=== PATIENT | male | born 1945 | race Caucasian/White ===

== ENCOUNTER 2024-05-13 00:08 | Day surgery (SDC) | payer MEDICARE, SELFPAY ==
[2024-05-12 13:14] VITALS: BMI 26.4
--- OUTSIDE RECORDS SUMMARY | 2024-05-13 00:11 | XMS_ITS | Clinical Summary ---
Author Organization [facility] iCurrent Address [address] [place] [address] Care Team Providers Care Licensed Occupational Therapy Assistant Name Role Phone Huber Carty MD Primary Care Provider [phone] Source Comments Recommend iCurrent,non-owned Affiliates and Associated Physician Practices is amultiple site organization consisting of ambulatory clinics and hospital sitesin [place], [place], [place] and [place]. This disclosure is being madepursuant to the Care Everywhere program and may not contain all information available regarding this patient. Last updated 17.[employer] Allergies No known active allergies Medications * Be aware that medications may not be up to date on this document. Alwaysverify current medications with the patient. Medication Sig Dispensed Refills Start Date End Date Status aspirin (ASPIRIN) 81 MG chew tablet 81 mg 01/21/2012 Active raNITIdine (ZANTAC) 150 MG tablet 150 mg 01/21/2012 Active Active Problems Problem Noted Date Diagnosed Date Paroxysmal atrial fibrillation 10/16/2016 Presence of cardiac pacemaker 10/16/2016 Overview (10/23/2016): Overview: Medtronic Dual Pacemaker Dx; CHB, Afib. DOI 09/02/2014, chronic leads 11/05/06. Carelink remote home monitoring Q3 months, Office pacer checks Q1 year. Pt is Pacer Dependent. Immunizations Name Administration Dates Next Due INFLUENZA VACCINE, HIGH-DOSE , QUADR. (FLUZONE HIGH-DOSE QUADRIVALENT; 65Y+), 0.7 ML (HD-IIV4) 10/12/2019,10/28/2018,10/16/2017, 017 Social History Tobacco Use Types Packs/Day Years Used Date Smoking Tobacco: Never Smokeless Tobacco: Never Alcohol Use Standard Drinks/Week Comments Yes 0 (1 standard drink = 0.6 oz pur e alcohol) Sex and Gender Information Value Date Recorded Sex Assigned at Not on file Gender Identity Not on file Sexual Orientation Not on file Last Filed Vital Signs Vital Sign Reading Time Taken Comments Blood Pressure 155/84 09/28/2020 8:52 AM CDT Pulse 69 09/28/2020 8:52 AM CDT Temperature 36.8 C (98.2 F) 09/28/2020 8:52 AM CDT Respiratory Rate 16 09/28/2020 8:52 AM CDT Oxygen Saturation 100% 09/28/2020 8:52 AM CDT Inhaled Oxygen Concentration - - Weight 83.9 kg (185 lb) 09/28/2020 8:52 AM CDT Height 182.9 cm (6') 09/28/2020 8:52 AM CDT Body Mass Index 25.09 09/28/2020 8:52 AM CDT Plan of Treatment Health Maintenance Due Date Last Done Comments DTAP/TDAP/TD VACCINES (1 - Tdap) 02/12/1964 PNEUMOCOCCAL VACCINE 50+ (1 of 1 - PCV) 1995 ZOSTER VACCINE (1 of 2) 1995 Respiratory Syncytial Virus (RSV) Vaccine Pt: or over 60 yrs (1 - 1-dose 75+ series) 02/12/2020 COVID-19 VACCINE (3 - season) 2023 03/29/2020, 03/07/2020 INFLUENZA VACCINE (#1) 2023 0, 10/28/2018, 10/16/2017, Additional history exists DEPRESSION SCREENING 2024 MEDICARE AWV CALENDAR YEAR 2024 HEPATITIS B VACCINE Aged Out No longe r eligible based on patient's age to complete this topic HIB VACCINE Aged Out No longer eligi ble based on patient's age to complete this topic HPV VACCINE Aged Out No longer eligi ble based on patient's age to complete this topic MENINGOCOCCAL (Group B) VACCINE SHARED DECISION-MAKING Aged Out No longer eligible based on patient's age to complete this topic MENINGOCOCCAL GROUPS A/C/Y/W VACCINE Aged Out No longer eligible based on patient's age to complete this topic Care Teams Licensed Occupational Therapy Assistant Relationship Specialty Start Date End Date Huber Carty MD PCP - General Family Medicine 11/17/15
--- OUTSIDE RECORDS SUMMARY | 2024-05-13 00:11 | XMS_ITS ---
Author Organization [facility] Address [address] [facility] [place] [address] Care Team Providers Care Cma Or Lpn Name Role Phone Rosa May Beatriz Primary Care Provider [phone] Active Problems Patient Care Coordination No te Formatting of this note migh t be different from the original. 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 Polypectomy x 14 - 07/2022 Vitamin B12 deficiency (non anemic) 01/19/2015 Complete heart block 01/18/2015 Overview (01/18/2015): 2008 following ablation. Pacemaker 10/25/2014 Overview (10/25/2014): 2006, 2014 Current Treatment and Therapy Plans No current plan information found. Past Treatment and Therapy Plans No past plan information found. Lifetime Dose Tracking * Chemical Lifetime Dose Automatic Entry Manual Entr y Effective Dose 12.61 mSv 12.61 mSv 0 mSv Total DLP 958.26 DLP 958.26 DLP 0 DLP CTDIvol Max 17.84 mGy 17.84 mGy 0 mGy CTDIvol Min 17.84 mGy 17.84 mGy 0 mGy
--- OUTSIDE RECORDS SUMMARY | 2024-05-13 00:11 | XMS_ITS | Clinical Summary ---
Author Organization [facility] [address] [facility] [address] Address [address] [place] [address] Care Team Providers Care Supervisor Abattoir Name Role Phone Beatriz Lee DO Primary Care Provider [phone] Allergies Active Allergy Reactions Criticality Noted Date Comments Sulfamethoxazole-Trimethoprim Diarrhea Low 2017 Medications atorvastatin (LIPITOR) 40 mg tablet Take 0.5 tablets (20 mg total) by mouth daily 05/30/2020 Active cyanocobalamin (Vitamin B-12) 50 mcg tabletIndicatio ns:Prevention of Vitamin B12 Deficiency Take 1 tablet (50 mcg total) by mouth daily Active cholecalciferol (VITAMIN D-3) 1,000 unit Take 1 tablet/capsu le (1,000 Units total) by mouth daily Active Active Problems Problem Noted Date Diagnosed Date Complete heart block 10/15/2018 Paroxysmal atrial fibrillation 10/16/2016 Presence of cardiac pacemaker 10/16/2016 Overview (10/16/2016): Medtronic Dual Pacemaker Dx; CHB, Afib. DOI 09/02/2014, chronic leads 11/05/06. Carelink remote home monitoring Q3 months, Office pacer checks Q1 year. Pt is Pacer Dependent. Encounters Date Type Department Care Team Description 04/29/2024 Telephone [facility] Cardiology [address] [place] [address] Yan Clemens MD remote device transmission 04/28/2024 11:00 AM CDT Ancillary Procedure [facility] Cardiology [address] [place] [phone] Complete heart block (HCC); Presence of cardiac pacemaker 04/15/2024 3:00 PM PARATRANSIT OPERATOR Office Visit [facility] Cardiology at [address] [place] [phone] Yan Clemens MD Paroxysmal atrial fibrillation (HCC) (Primary Dx); Presence of cardiac pacemaker; Complete heart block (HCC) 03/31/2024 10:00 AM PARATRANSIT OPERATOR Ancillary Procedure [facility] Cardiology [address] [place] [address] [place] [phone] Complete heart block (HCC); Presence of cardiac pacemaker 03/02/2024 11:00 AM PARATRANSIT OPERATOR Ancillary Procedure [facility] Cardiology [address] [place] [address] [place] [phone] Complete heart block (HCC); Presence of cardiac pacemaker 02/13/2024 Orders Only [facility] Cardiology [address] [place] [address] [place] [phone] Yan Clemens MD Complete heart block (HCC) (Primary Dx); Presence of cardiac pacemaker from Last 3 Months Surgical History Surgery Date Site/Laterality Comments ABDOMINAL SURGERY September 2022 Medical History Medical History Date Comments Hypertension Hypertension Hx Other Medical DJD Family History Medical History Relation Name Comments Arrhythmia Mother Rhoda Kaur Arrhythmias; Hypertension Mother Rhoda Kaur Hypertension; Relation Name Status Comments Mother Rhoda Kaur Alive Social History Tobacco Use Types Packs/Day Years Used Date Smoking Tobacco: Former Cigarettes 1 15.2 0 06/04/1963 - 07/30/1978 Smokeless Tobacco: Never Tobacco Cessation:Counseling Given: Not Answered Alcohol Use Standard Drinks/Week Comments Yes 0 (1 standard drink = 0.6 oz pur e alcohol) Sex and Gender Information Value Date Recorded Sex Assigned at Not on file Legal Sex Male 4:45 PM PARATRANSIT OPERATOR Gender Identity Male 04/16/2019 8:30 AM PARATRANSIT OPERATOR Sexual Orientation Straight 04/16/2019 8: 30 AM PARATRANSIT OPERATOR Obstetrics History Last Filed Vital Signs Vital Sign Reading Time Taken Comments Blood Pressure 138/86 04/15/2024 3:07 PM PARATRANSIT OPERATOR Pulse 70 04/15/2024 3:07 PM PARATRANSIT OPERATOR Temperature 36.7 C (98 F) 10/27/2021 9:28 AM CDT Respiratory Rate 18 10/27/2021 9:28 AM CDT Oxygen Saturation 97% 04/15/2024 3:07 PM PARATRANSIT OPERATOR Inhaled Oxygen Concentration - - Weight 89.8 kg (198 lb) 04/15/2024 3:07 PM PARATRANSIT OPERATOR Height 180.3 cm (5' 11 ) 04/15/2024 3:07 PM PARATRANSIT OPERATOR Body Mass Index 27.62 04/15/2024 3:07 PM PARATRANSIT OPERATOR Plan of Treatment Health Maintenance Due Date Last Done Comments Depression Screening 1945 Fall Risk Assessment 1945 Hepatitis C Screening 1945 Hepatitis B Screening 1963 Zoster Vaccine (1 of 2) 1995 Well Visit 65+ 2010 Covid-19 Vaccine (5 - 2023-2 5 season) 2023 06/04/2021, 11/07/2020, 03/29/2020, Additional history exists Influenza Vaccine (Season Ended) 2024 10/19/2020, 10/16/2020, 10/12/2019, Additional history exists DTaP/Tdap/Td Vaccine (2 - Td or Tdap) 08/28/2029 08/29/2019, 07/22/2006 Pneumococcal vaccine 65+ Completed 11/07/2015, 10/11 Abdominal Aortic Aneurysm (A AA) Screen Completed 06/13/2022 Medical Devices Implanted Type Area Integration Software Engineer Device Identifier Shelf Expiration Date Model / Serial / Lot Pacemaker-2014 Implanted:09/02 (Quantity not on file) Pacemaker Chest Medtronic CHB, Afib ADVISA DR PIERCE / [id number] / Description:Chronic leads . Procedures Procedure Name Priority Date/Time Associated Diagnosis Comments DEVICE CHECK - REMOTE Routine 04/28/2024 1:30 PM CDT Complete heart block (HCC) Presence of cardiac pacemaker DEVICE CHECK - REMOTE Routine 03/31/2024 11:05 AM PARATRANSIT OPERATOR Complete heart block (HCC) Presence of cardiac pacemaker DEVICE CHECK - IN OFFICE Routine 03/02/2024 10:38 AM PARATRANSIT OPERATOR Complete heart block (HCC) Presence of cardiac pacemaker DEVICE CHECK - REMOTE Routine 02/13/2024 2:59 PM PARATRANSIT OPERATOR Paroxysmal atrial fibrillation (HCC) Complete heart block (HCC) from Last 3 Months Results * DEVICE CHECK - REMOTE (04/28/2024 1:30 PM CDT) Anatomical Region Laterality Modality Other Narrative 04/30/2024 8:40 AM CDT Medtronic Dual Pacemaker Dx; CHB, Afib. DOI 09/02/2014, chronic leads 11/05/06. Carelink remote home monitoring Q3 months, Office pacer checks Q1 year. Pt is Pacer Dependent. DDD Pacemaker Remote to assess battery status Transmission attached. Battery status: 2.83 V, CHILD DEVELOPMENT INSTRUCTOR reached on 04/06/24. Per Medtronic Howard tech support, at patient's current settings he has approximately 2 months until device reaches ALBERT. At ALBERT, the device will switch to VVI at 65 beats per minute but is still reprogrammed mobile. At ALBERT with the patient's current settings the patient should have 3 months until end of service. Patient is pacemaker dependent. Stable lead impedances, pacing and sensing thresholds. Presenting rhythm: A sensed/V paced AP-76.1%, FISHER EEL-97.9% No AT/AF episodes noted. No Ventricular high rate episodes detected. Medications: No anticoagulation or cardiac meds See scanned report. Office pacemaker follow up: Pending generator change Called patient to inform him that his device had reached the recommended replacement time. Patient is requesting replacement at [facility] with Dr. Clemens. Patient reports that he started a 7 day course of prednisone 20 mg once daily on 04/27/24 for tendinitis. Patient does not take any anticoagulation meds. Patient confirmed he takes atorvastatin 40 mg tablets, cholecalciferol 1000 units, cyanocobalamin 50 mcg as ordered. Patient is not diabetic. Informed patient that this report will be sent to Dr. Clemens and the [facility] team in order to get him scheduled for his device replacement, and they would be reaching out to him shortly. Patient verbalized understanding. Kenroy Saez RN Yan Clemens MD CV CARDIAC SERVICES PROC EDURES Final Result * DEVICE CHECK - REMOTE (03/31/2024 11:05 AM PARATRANSIT OPERATOR) Anatomical Region Laterality Modality Other Narrative 04/13/2024 10:33 AM PARATRANSIT OPERATOR Medtronic Advisa Dual Pacemaker Dx; CHB, Afib. DOI 09/02/2014, chronic leads 11/05/06. Carelink remote home monitoring Q3 months, Office pacer checks Q1 year. Pt is pacer dependent. 4 week DDD Pacemaker Remote to assess battery status. Transmission attached. Battery status: 2.83 V, 2 months remaining battery life to ALBERT. Stable lead impedances, pacing and sensing thresholds. Presenting rhythm: -FISHER EEL. AP-76.5%, FISHER EEL-98.9%. No AT/AF episodes noted. No Ventricular high rate episodes detected. Medications: Lipitor. See scanned report. Office pacemaker follow up: post pacemaker replacement. Carelink remote f/u 04/28/2024. Charley Peck RN Yan Clemens MD CV CARDIAC SERVICES PROC EDURES Final Result * DEVICE CHECK - IN OFFICE (03/02/2024 10:38 AM PARATRANSIT OPERATOR) Anatomical Region Laterality Modality Other Narrative 03/04/2024 2:43 PM PARATRANSIT OPERATOR Medtronic Dual Pacemaker Dx; CHB, Afib. DOI 09/02/2014, chronic leads 11/05/06. Carelink remote home monitoring Q3 months, Office pacer checks Q1 year. Pt is Pacer Dependent. Supervising MD: Nikki Office DDD Pacemaker evaluation demonstrated appropriate device function. Left pectoral incision well healed without signs of infection noted. Battery function: 2.84 V, 2 months remaining battery life to ALBERT. Appropriate lead measurements noted. Presenting rhythm- AP/FISHER EEL Underlying rhythm- V-paced DDD at 40 bpm AP- 75.9%, FISHER EEL- 99.9% No Atrial high rate episodes noted. No Ventricular high rate episodes noted. Medications; None No Programming changes made to device settings. See scanned report. Office device pending generator change CareLink remote f/u 03/31/24 Kenroy Saez RN Yan Clemens MD CV CARDIAC SERVICES PROC EDURES Final Result * DEVICE CHECK - REMOTE (02/13/2024 2:59 PM PARATRANSIT OPERATOR) Anatomical Region Laterality Modality Other Narrative 03/22/2024 4:20 PM PARATRANSIT OPERATOR Medtronic Dual Pacemaker Dx; CHB, Afib. DOI 09/02/2014, chronic leads 11/05/06. Carelink remote home monitoring Q3 months, Office pacer checks Q1 year. Pt is Pacer Dependent. Routine DDD Pacemaker Remote. Transmission attached. Battery status: 2.84 V, 3 months remaining battery life to ALBERT. Stable lead impedances, pacing and sensing thresholds. Presenting rhythm: A sensed/V paced AP-76%, FISHER EEL-99.9% No AT/AF episodes noted. No Ventricular high rate episodes detected. Medications: No anticoagulation or cardiac meds See scanned report. Office pacemaker follow up: Pending generator change [facility]Link remote f/u 03/31/24. Kenroy Saez RN Yan Clemens MD CV CARDIAC SERVICES PROC EDURES Final Result from Last 3 Months Insurance ANTHEM MEDICARE HMO PPO ANTHEM MEDICARE HMO PPO ANTHEM MEDICARE HMO PPO Care Teams Supervisor Abattoir Relationship Specialty [place] [address] [facility] [address] [place] [id number] PCP - General Family Medicine 03/02/24
--- OUTSIDE RECORDS SUMMARY | 2024-05-13 00:11 | XMS_ITS | Referral Summary ---
Author Organization [facility] [address] [facility] [address] Address [address] [place] [address] Care Team Providers Care Pump Mechanic Name Role Phone Beatriz Lee Primary Care Provider [phone] Encounters Date Type Department Care Team Description 04/29/2024 Telephone [facility] Cardiology [address] [place] [address] Yan Clemens MD remote device transmission 04/28/2024 11:00 AM CDT Ancillary Procedure [facility] Cardiology [address] [place] [address] [place] [phone] Complete heart block (HCC); Presence of cardiac pacemaker 04/15/2024 3:00 PM MANAGER SPRING Office Visit [facility] Cardiology at [address] [place] [address] Yan Clemens MD Paroxysmal atrial fibrillation (HCC) (Primary Dx); Presence of cardiac pacemaker; Complete heart block (HCC) 03/31/2024 10:00 AM MANAGER SPRING Ancillary Procedure [facility] Cardiology [address] [place] [address] [place] [phone] Complete heart block (HCC); Presence of cardiac pacemaker 03/02/2024 11:00 AM MANAGER SPRING Ancillary Procedure [facility] Cardiology [address] [place] [address] [place] [phone] Complete heart block (HCC); Presence of cardiac pacemaker 02/13/2024 Orders Only [facility] Cardiology [address] [place] [phone] Yan Clemens MD Complete heart block (HCC) (Primary Dx); Presence of cardiac pacemaker from Last 3 Months Allergies Active Allergy Reactions Criticality Noted Date [...] checks Q1 year. Pt is Pacer Dependent. Social History Tobacco Use Types Packs/Day Years Used Date Smoking Tobacco: Former Cigarettes 1 15.2 0 06/04/1963 - 07/30/1978 Smokeless Tobacco: Never Tobacco Cessation:Counseling Given: Not Answered Alcohol Use Standard Drinks/Week Comments Yes 0 (1 standard drink = 0.6 oz pur e alcohol) Sex and Gender Information Value Date Recorded Sex Assigned at Not on file Legal Sex Male 4:45 PM MANAGER SPRING Gender Identity Male 04/16/2019 8:30 AM MANAGER SPRING Sexual Orientation Straight 04/16/2019 8: 30 AM MANAGER SPRING Last Filed Vital Signs Vital Sign Reading Time Taken Comments Blood Pressure 138/86 04/15/2024 3:07 PM MANAGER SPRING Pulse 70 04/15/2024 3:07 PM MANAGER SPRING Temperature 36.7 C (98 F) 10/27/2021 9:28 AM CDT Respiratory Rate 18 10/27/2021 9:28 AM CDT Oxygen Saturation 97% 04/15/2024 3:07 PM MANAGER SPRING Inhaled Oxygen Concentration - - Weight 89.8 kg (198 lb) 04/15/2024 3:07 PM MANAGER SPRING Height 180.3 cm (5' 11 ) 04/15/2024 3:07 PM MANAGER SPRING Body Mass Index 27.62 04/15/2024 3:07 PM MANAGER SPRING Plan of Treatment Not on file Medical Devices Implanted Type Area Contract Agent Device Identifier Shelf Expiration Date Model / Serial / Lot Pacemaker-2014 Implanted:09/02 (Quantity not on file) Pacemaker Chest Medtronic CHB, Afib ADVISA DR PIERCE / [id number] / Description:Chronic leads . Procedures Procedure Name Priority Date/Time Associated Diagnosis Comments DEVICE CHECK - REMOTE Routine 04/28/2024 1:30 PM CDT Complete heart block (HCC) Presence of cardiac pacemaker DEVICE CHECK - REMOTE Routine 03/31/2024 11:05 AM MANAGER SPRING Complete heart block (HCC) Presence of cardiac pacemaker DEVICE CHECK - IN OFFICE Routine 03/02/2024 10:38 AM MANAGER SPRING Complete heart block (HCC) Presence of cardiac pacemaker DEVICE CHECK - REMOTE Routine 02/13/2024 2:59 PM MANAGER SPRING Paroxysmal atrial fibrillation (HCC) Complete heart block (HCC) from Last 3 Months Results * DEVICE CHECK - REMOTE (04/28/2024 1:30 PM CDT) Anatomical Region Laterality Modality Other Narrative 04/30/2024 8:40 AM CDT Medtronic Dual Pacemaker Dx; RAJI, Afib. DOI 09/02/2014, chronic leads 11/05/06. Carelink remote home monitoring Q3 months, Office pacer checks Q1 year. Pt is Pacer Dependent. DDD Pacemaker Remote to assess battery status Transmission attached. Battery status: 2.83 V, ATTENDING RADIOLOGIST reached on 04/06/24. Per [employer] [facility]tronic Howard tech support, at patient's current settings [...] thresholds. Presenting rhythm: A sensed/V paced AP-76.1%, TOOTH CUTTER PINION-97.9% No AT/AF episodes noted. No Ventricular high rate episodes detected. Medications: No anticoagulation or cardiac meds See scanned report. Office pacemaker follow up: Pending generator change Called patient to inform him that his device had reached the recommended replacement time. Patient is requesting replacement at [facility] with Dr. Clemens. Patient reports that he started a 7 day course of prednisone 20 mg once daily on 04/27/24 for tendinitis. Patient does not take any anticoagulation meds. Patient confirmed he takes atorvastatin 40 mg tablets, cholecalciferol 1000 units, cyanocobalamin 50 mcg as ordered. Patient is not diabetic. Informed patient that this report will be sent to Dr. Clemens and the [facility] team in order to get him scheduled for his device replacement, and they would be reaching out to him shortly. Patient verbalized understanding. Kenroy Saez RN us Yan Clemens MD CV CARDIAC SERVICES PROC EDURES Final Result * DEVICE CHECK - REMOTE (03/31/2024 11:05 AM MANAGER SPRING) Anatomical Region Laterality Modality Other Narrative 04/13/2024 10:33 AM MANAGER SPRING Medtronic Advisa Dual Pacemaker Dx; CHB, Afib. DOI 09/02/2014, chronic leads 11/05/06. Carelink remote home monitoring Q3 months, Office pacer checks Q1 year. Pt is pacer dependent. 4 week DDD Pacemaker Remote to assess battery status. Transmission attached. Battery status: 2.83 V, 2 months remaining battery life to ALBERT. Stable lead impedances, pacing and sensing thresholds. Presenting rhythm: -TOOTH CUTTER PINION. AP-76.5%, TOOTH CUTTER PINION-98.9%. No AT/AF episodes noted. No Ventricular high rate episodes detected. Medications: Lipitor. See scanned report. Office pacemaker follow up: post pacemaker replacement. [facility]link remote f/u 04/28/2024. Charley Peck RN Yan Clemens MD CV CARDIAC SERVICES PROC EDURES Final Result * DEVICE CHECK - IN OFFICE (03/02/2024 10:38 AM MANAGER SPRING) Anatomical Region Laterality Modality Other Narrative 03/04/2024 2:43 PM MANAGER SPRING Medtronic Dual Pacemaker Dx; CHB, Afib. DOI [...] ALBERT. Appropriate lead measurements noted. Presenting rhythm- AP/TOOTH CUTTER PINION Underlying rhythm- V-paced DDD at 40 bpm AP- 75.9%, TOOTH CUTTER PINION- 99.9% No Atrial high rate episodes noted. No Ventricular high rate episodes noted. Medications; None No Programming changes made to device settings. See scanned report. Office device pending generator change [facility] remote f/u 03/31/24 Kenroy Saez RN Yan Clemens MD CV CARDIAC SERVICES PROC EDURES Final Result * DEVICE CHECK - REMOTE (02/13/2024 2:59 PM MANAGER SPRING) Anatomical Region Laterality Modality Other Narrative 03/22/2024 4:20 PM MANAGER SPRING Medtronic Dual Pacemaker Dx; CHB, Afib. DOI 09/02/2014, chronic leads 11/05/06. Carelink remote home monitoring Q3 months, Office pacer checks Q1 year. Pt is Pacer Dependent. Routine DDD Pacemaker Remote. Transmission attached. Battery status: 2.84 V, 3 months remaining battery life to ALBERT. Stable lead impedances, pacing and sensing thresholds. Presenting rhythm: A sensed/V paced AP-76%, TOOTH CUTTER PINION-99.9% No AT/AF episodes noted. No Ventricular high rate episodes detected. Medications: No anticoagulation or cardiac meds See scanned report. Office pacemaker follow up: Pending generator change [facility] remote f/u 03/31/24. Kenroy Saez RN Yan Clemens MD CV CARDIAC SERVICES PROC EDURES Final Result from Last 3 Months Insurance ANTHEM MEDICARE HMO PPO ANTHEM MEDICARE HMO PPO ANTHEM MEDICARE HMO PPO Member Subscriber Plan / Payer (Ef fective 2023-Present) Name:Amos Kaur Relation to Subscriber:Self Name:Amos Kaur Payer ID:[id number] (NAIC) Group ID:[id number] Type:MEDICARE RISK OTHER Address: [address] [place] [id number] Care Teams Pump Mechanic Relationship Specialty [place] [address] [facility] [address] [place] [address] PCP - General Family Medicine 03/02/24
--- OUTSIDE RECORDS SUMMARY | 2024-05-13 00:11 | XMS_ITS | Continuity of Care Document ---
Author Organization [facility] Address [address] [place] [address] Phone Care Team Providers Care Housesmith Name Role Phone Victoria Gillette Unavailable Unavailab le Allergies, Adverse Reactions, Alerts Substance Reaction Status Criticality Sulfa (Sulfonamide Antibiotics) Hives(no t reported)Hives(not reported) Active No Information Medications Medication Instructions Dosage Effective Dates (start - stop) Status Comments Aspir-81 81 mg tablet,delayed release - Active Procedures Procedure Date RADEX BERT COMPL MINIMUM 2 VIEWS 020 OFFICE/OUTPATIENT VISIT NEW OFFICE/OUTPATIENT VISIT NEW Advance Directives Directive Yes / No Effective Date File Name No Information Encounters Encounter Description Practice Location Reason(s) For Visit Diagnoses Date Provider Providers Copied on Encounter OFFICE/OUTPAT IENT VISIT NEW [facility], [address] [address], [place], [address], [place] tel:[phone] [facility] Left shoulder pain, unspecified chronicityBody mass index (BMI) 25.0-25.9, adultShoulder weakness - 0 Box[place]fer Victoria. [address], [place], [place], [address]. tel:[phone] Referring Provider: Huber Corona, [address] [place] [address] [address], [place], [address]. tel:[phone] OFFICE/OUTPAT IENT VISIT NEW [facility], [address], [place], [address], [place] tel:[phone] [facility] Knee effusion 3 Josef Power. [address], [place], [place], [address]. tel:[phone] Family History Family Member Type Diagnosis Age At Onset Problem (finding) Family history of hyper tension Father Problem (finding) stroke (Cause Of ) Immunizations Vaccine Date Status Comments Pneumo (2 yrs or older)(PPV) administered Source: Other Provider Payers Payer name Insurance type Covered libertarian ID Oly bauer(s) Medicare E2 OT [id number] Blue Access Choice PPO E2 OT [id number] Social History Type Description Quantity Date Captured Comments Alcohol Use Details beer 3 beers weekly Caffeine Use Details coffee and soda 0 Tobacco Use Status Ex-cigarette smoker 020 Smoking Status Former smoker Smoking Tobacco Use Details Cigarette: Age Stopped: 30 Cigarette: No Details Available Sex Male Vital Signs Date / Time: Height Weight BMI Pulse Rate Blood Pressure Temperature Respiratory Rate Body Surface Area Head Circumference Head Circ. Percentile Wt./Parker. Percentile BMI percentile Pulse Ox Inhaled Ox 2:12 PM 72.00 in 83.915 kg (185.00 lbs) 25.0 9 kg/m eter (2) Chief Complaint And Reason For Visit No Information Reason For Referral Reason For Referral No Information Plan Of Treatment Date Type Action Status Goal Dietary management education , guidance, and counseling completed Referral Ordered: RADEX BERT COMPL MINIMUM 2 VIEWS LT shoulder ordered Referral Ordered: RADEX KNE 3 VIEWS LT ordered History Of Present Illness Encounter Date Complaint History Of Prese nt Illness No Information Functional Status Date Functional Assessmen t No Information Instructions Date Instruction Additional Infor mation Dietary management e ducation, guidance, and counseling Related to Body mass index (BMI) 25.0-25.9, adult Rest, ice and elevate. Related t o Left shoulder pain, unspecified chronicity Discussed treatment options Rela marcus to Left shoulder pain, unspecified chronicity Activity as tolerated Use compressive wrap OTC anti-inflammatories (NSAIDs) ROM as tolerated Assessments Type Assessment Date assessment Left shoulder pain, unspecified chronicity assessment Body mass index (BMI) 25.0-25.9, adult assessment Shoulder weakness Patient Care Teams Name Effective Dates (start - stop) Status Members No Information
--- OUTSIDE RECORDS SUMMARY | 2024-05-13 00:11 | XMS_ITS | Clinical Summary ---
Author Organization [facility] Address [address] [place] [address] Care Team Providers Care French Comber Name Role Phone Rosa May Beatriz Primary Care Provider [phone] Allergies Active Allergy Reactions Criticality Noted Date Comments Sulfa (Sulfonamide Antibiotics) Diarrhea,Nausea and Vomiting Low 07/29/2023 Sulfamethoxazole-Trimethop rim Diarrhea,Nausea and Vomiting Medium 06/23/2017 fever Medications thiamine HCl (VITAMIN B-1 ORAL) Take by mouth. Activ e ergocalciferol , vitamin D2, (VITAMIN D ORAL) Take by mouth. Activ e meloxicam (MOBIC) 7.5 mg tablet Take 1 Tablet (7.5 mg) by mouth daily. 30 Tablet 1 4 Active Additional Information Patient not taking.Reported on 04/23/2024 atorvastatin (LIPITOR) 20 mg tablet Take 1 Tablet (20 mg) by mouth daily. 100 Tablet 3 4 Active predniSONE (DELTASONE) 20 mg tabletIndicati ons:Metatarsal garett of left foot Take 1 Tablet (20 mg) by mouth daily. 7 Tablet 5 Active triamcinolone acetonide (KENALOG) 0.1 % Cream Apply to affected area 1 time daily as needed for Other (See Comment) (heat rash). 80 Gram 5 Active triamcinolone acetonide (KENALOG) 0.1 % Cream Apply to affected area 1 time daily as needed for Other (See Comment) (heat rash). 1 04/24/19 25 Discontin ued(Reord er) Active Problems Patient Care Coordination No te [...] 01/19/2015 Complete heart block 01/18/2015 Overview (01/18/2015): 2007 following ablation. Pacemaker 10/25/2014 Overview (10/25/2014): 2006, replaced 2014 Encounters Date Type Department Care Team Description 04/28/2024 External Device Data ST[facility] ABSTRACTION Provider, Abstract 04/23/2024 9:00 AM CDT Office Visit [facility] Primary Care [address] [address] Rhiannon Jackson, MOLD SANDER Metatarsalgia of left foot (Primary Dx) 03/31/2024 External Device Data ST[facility] ABSTRACTION Provider, Abstract 03/10/2024 External Device Data [facility] ABSTRACTION Provider, Abstract 03/04/2024 External Device Data [facility] ABSTRACTION Provider, Abstract from Last 3 Months Immunizations Immunization Administration Dates Next Due (ADACEL/BOOSTRIX)(10 YR UP) TDAP VACCINE, 0.5ML, IM 08/29/2019 (PFIZER)(12 YR UP) COVID-19 VACCINE - EMERGENCY USE AUTHORIZATION, MRNA, [id number](PF) 30 MCG/0.3 ML IM SUSP 06/04/2021,03/29/2020,03/07/2020 (PNEUMOVAX 23)(50 YRS UP) PN EUMOCOCCAL POLYSACCHARIDE (PPV23) 0.5 ML, IM 11/07/2015 (PREVNAR 13)(6 WKS UP) PNEUM OCOCCAL CONJUGATE (PCV13) 0.5 ML, IM 10/25/2014 (PREVNAR 20)(6 WKS UP) PNEUM OCOCCAL CONJUGATE VACCINE 20-VALENT (PCV20), POLYSACCHARIDE [id number] CONJUGATE, ADJUVANT 0.5 ML (PF) IM 12/20/2022 (Pfizer Bivalent)(12 Yr Up) COVID-19 Vaccine - Emergency Use Authorization, MRNA, Lnp-S(Pf) 30 Mcg/0.3 Ml Susp 11/11/2023,12/05/2021 (SPIKEVAX)(12 YRS AND UP)COV ID-19 VACCINE, MRNA, LNP-S(PF) 50 MCG/0.5 ML IM SUSPENCY USE AUTHORIZATION, RECOMBINANT-ADJ(PF) 5 MCG/0.5 ML IM SUSP 11/04/2022 (TDVAX)(7 YRS UP) TETANUS AN D DIPHTHERIA TOXOIDS, ADSORBED (2 LF OF TETANUS TOXOID AND 2 LF OF DIPHTHERIA TOXOID), 0.5ML (PF), IM 07/22/2006 INFLUENZA VACCINE HIGH DOSE QUADRIVALENT 65 YR UP PF IM 11/11/2023,10/21/2022,10/25/2021,10/19 Influenza Seasonal Unspecifi ed Formulation IM 10/16/2020,10/12/2019,10/28/2018,10/16,10/23/2016 Influenza Vaccine High Dose 65+ Yrs IM 7,11/07/2015,10/21/2014 Family History Medical History Relation Name Comments Healthy Brother Lung Cancer Father Tono Kaur Heart Disease Mother Rhoda Kaur Hypertension Mother Rhoda Kaur Colon Cancer Neg Hx Relation Name Status Comments Brother Alive Father Tono Kaur Mother Rhoda Kaur Alive Social History Tobacco Use Types Packs/Day Years Used Date Smoking Tobacco: Former Cigarettes 1 16 0 07/30/1978 - 05/29/1979 Smokeless Tobacco: Never Tobacco Cessation:Counseling Given: Not Answered Alcohol Use Standard Drinks/Week Comments Yes 4 (1 standard drink = 0.6 oz pur e alcohol) Feeling Safe Answer Date Recorded Within the last year, have y ou been afraid of your partner or ex-partner? No 05/09/2020 Within the last year, have y ou been humiliated or emotionally abused in other ways by your partner or ex-partner? No Within the last year, have y ou been kicked, hit, slapped, or otherwise physically hurt by your partner or ex-partner? No 05/09/2020 Within the last year, have y ou been raped or forced to have any kind of sexual activity by your partner or ex-partner? No 05/09/2020 Social Connections Answer Date Recorded In a typical week, how many times do you talk on the telephone with family, friends, or neighbors? More than three times a week 05/09/2020 How often do you get togethe r with friends or relatives? Twice a week 05/09/2020 How often do you attend chur ch or taoism services? Never 05/09/2020 Do you belong to any clubs o r organizations such as latter-day groups, unions, fraternal or athletic groups, or school groups? No 05/09/2020 How often do you attend meet ings of the clubs or organizations you belong to? Never 05/09/2020 Are you , , di vorced, , never , or living with a partner? 05/09/2020 Financial Resource Strain Answer Date R ecorded How hard is it for you to pa y for the very basics like food, housing, medical care, and heating? Not hard at all 12/19/2021 Food Insecurity Answer Date Recorded In the past 12 months, have you worried that your food would run out before you had money to buy more? Never true 12/19/2021 In the past 12 months, did y ou run out of food and didn't have money to buy more? Never true 12/19/2021 Transportation Needs Answer Date Record ed In the past 12 months, has l ack of transportation kept you from medical appointments or from getting medications? No 12/19/2021 Lack of Transportation (Non-Medical) Not on file 12/19/2021 Housing Stability Answer Date Recorded In the last 12 months, was t here a time when you were not able to pay the mortgage or rent on time? No 05/09/2020 Number of Times Moved in the Last Year Not on fi le 05/09/2020 (RETIRED) In the last 12 fri ths, was there a time when you did not have a steady place to sleep or slept in a chcf (including now)? No 05/09/2020 Feeling Safe Answer Date Recorded Are you in a relationship wi th someone who hurts you emotionally and/or physically? No 07/29/2023 Sex and Gender Information Value Date Recorded Sex Assigned at Not on file Legal Sex Male 4:26 AM JACK SETTER Gender Identity Not on file Sexual Orientation Not on file Last Filed Vital Signs Vital Sign Reading Time Taken Comments Blood Pressure 128/82 04/23/2024 8:47 AM CDT Pulse 70 04/23/2024 8:47 AM CDT Temperature 36.6 C (97.8 F) 04/23/2024 8:47 AM CDT Respiratory Rate 16 07/29/2023 9:54 AM CDT Oxygen Saturation 97% 04/23/2024 8:47 AM CDT Inhaled Oxygen Concentration - - Weight 90.7 kg (200 lb) 04/23/2024 8:47 AM CDT Height 180.3 cm (5' 11 ) 04/23/2024 8:47 AM CDT Body Mass Index 27.89 04/23/2024 8:47 AM CDT Plan of Treatment Upcoming Encounters Date Type Department Care Team (Late st Contact Info) Description 06/22/2024 8:30 AM CDT Office Visit [facility] Primary Care - [facility] [id number] [place] [address] [place] [address] [place] [address] Health Maintenance Due Date Last Done Comments ZOSTER VACCINE (1 of 2) 1995 RSV VACCINE (60+ or ) (1 - 1-dose 75+ series) 02/12/2020 COVID-19 Vaccine (2023-2 5 season) 2024 11/11/2023, 05/22/2023, 11/04/2022, Additional history exists Medicare Advantage ([place]) Preventative Visit/Annual Wellness Visit 2024 12/22/2023, 12/20/2022, 12/20/2022, Additional history exists COLORECTAL SCREENING 07/28/2024 07/29/2023, 07/29/2023, 07/29/2023, Additional history exists DTAP/TDAP/TD VACCINES (2 - T d or Tdap) 08/28/2029 08/29/2019, 07/22/2006 PNEUMOCOCCAL VACCINE 50+ YEARS Completed 1 02/19/2022, 11/07/2015, 10/25/2014 INFLUENZA VACCINE Completed 11/11/2023, , 10/25/2021, Additional history exists Medical Devices Implanted Type Area Dielectric Tester Device Identifier Shelf Expiration Date Model / Serial / Lot Endo Clip Ii 10mm [id number] - [id number] Implanted:Qty : 1 on 10/10/2022 by Delon Block MD at [facility] Clip N/A: Stomach [employer] - COVIDIEN [id number] / / Hemostat Surg Snow 2x4in 2081 [id number] Implanted:Qty : 1 on 10/10/2022 by Delon Block MD at [facility] Hemostatic N/A: Stomach [employer] 03/12/2024 2082 / / [id number] Pacemaker Pacemaker Description:medtronik CIED on [employer] rep notified 10/09/22 of date and time of surgery for 10/10/22. Procedures Procedure Name Priority Date/Time Associated Diagnosis Comments COLONOSCOPY REPORT 07/29/2023 9: 39 AM CDT from Last 3 Months or Most Recently Relevant to Health Maintenance Results * COLONOSCOPY REPORT (07/29/2023 9:39 AM CDT) Narrative Procedure Note Catracho Rosas MD - 07/29/2023 9:39 AM CDT [facility] Endoscopy Patient Name: Amos Kaur Procedure Date: 07/29/2023 Date of : 1945 Attending MD: Catracho Rosas MD, Procedure: Colonoscopy Indications: Surveillance: History of numerous (> 10) adenomas on last colonoscopy (< 3 yrs) Providers: Catracho Rosas MD Referring MD: Huber Carty MD Medicines: General Anesthesia Complications: No immediate complications. Estimated blood loss: Minimal. Procedure: Informed consent was obtained for the procedure, including moderate sedation after risks were discussed. Based on the pre-procedure assessment, including review of the patient's medical history, medications, allergies, and review of systems, the patient was deemed to be an appropriate candidate for sedation. A timeout was performed. Continuous ECG monitoring, pulse oximetry, blood pressure monitoring, and direct observation were performed. The Colonoscope was introduced through the anus and advanced to the terminal ileum. The colonoscopy was performed without difficulty. The patient tolerated the procedure well. The quality of the bowel preparation was good. Estimated Blood Loss: Estimated blood loss was minimal. Findings: A 3 mm polyp was found in the transverse colon. The polyp was sessile. The polyp was removed with a cold snare. Resection and retrieval were complete. Multiple small-mouthed diverticula were found in the entire colon. Internal hemorrhoids were found during retroflexion. The hemorrhoids were medium-sized. The exam was otherwise without abnormality on direct and retroflexion views. Impression: - One 3 mm polyp in the transverse colon, removed with a cold snare. Resected and retrieved. - Diverticulosis in the entire examined colon. - Internal hemorrhoids. - The examination was otherwise normal on direct and retroflexion views. Recommendation: - Await pathology results. - Repeat colonoscopy for surveillance is not recommended. Catracho Rosas MD 07/29/2023 9:39:43 AM This report has been signed electronically. Number of Addenda: [address]; [place] [address] Catracho Rosas MD GI PROCEDURE ORDERABLES Final R esult from Last 3 Months or Most Recently Relevant to Health Maintenance Insurance BCBS MEDICARE HMO [facility] Medicare Part D Advance Directives For more information, please contact: [phone] Documents on File Type Date Recorded Patient Parking Lot Spotter Expl anation Advance Directive POA 10/07/2022 1:51 PM A dvance Directive POA * Full Code (Latest Code Status on File) Date Activated Date Inactivated Comments 07/29/2023 8:56 AM 07/29/2023 12:23 PM * Full Code Date Activated Date Inactivated Comments 10/10/2022 3:16 PM 10/11/2022 6:45 PM * Full Code Date Activated Date Inactivated Comments 10/10/2022 5:47 AM 10/10/2022 3:16 PM * Full Code Date Activated Date Inactivated Comments 08/28/2022 10:14 AM 08/28/2022 1:51 PM * Full Code Date Activated Date Inactivated Comments 07/23/2022 8:03 AM 07/23/2022 12:34 PM Care Teams French Comber Relationship Specialty Start [place] [address] [address] PCP - General Family Practice 07/21/23
--- OUTSIDE RECORDS SUMMARY | 2024-05-13 00:11 | XMS_ITS | Encounter Summary ---
Author Organization [facility] Address [address] [place] [address] Care Team Providers Care Wholesale Agronomist Name Role Phone Singer Carol MD, Huber Santiago Primary Care Provider Beatriz Lee DO Primary Care Provider [phone] Encounter Details Date Type Department Care Team (Late st Contact Info) Description 02/14/2016 Orders Only [facility] ProviderSanaz MD [address] [place], [place] [id number] Social History Tobacco Use Types Packs/Day Years Used Date Smoking Tobacco: Former Alcohol Use Standard Drinks/Week Comments Yes 0 (1 standard drink = 0.6 oz pur e alcohol) Sex and Gender Information Value Date Recorded Sex Assigned at Not on file Legal Sex Male 4:45 PM DEPUTY SHERIFF/INVESTIGATOR Gender Identity Male 04/16/2019 8:30 AM DEPUTY SHERIFF/INVESTIGATOR Sexual Orientation Straight 04/16/2019 8: 30 AM DEPUTY SHERIFF/INVESTIGATOR documented as of this encounter Plan of Treatment Not on file documented as of this encounter Procedures Procedure Name Priority Date/Time Associated Diagnosis Comments CARDIOLOGY REPORT 02/14/2016 documented in this encounter Results * CARDIOLOGY REPORT (02/14/2016) Anatomical Region Laterality Modality Other Narrative 02/14/2016 Ordered by an unspecified provider. Historical Provider [facility] J[facility]I WILSON Final Result documented in this encounter Visit Diagnoses Not on filedocumented in this encounter Care Teams Wholesale Agronomist Relationship Specialty [place] [address] [place] [address] PCP - General 09/08/14 03/01/24 [place] [address] [place] [address] PCP - General Family Medicine 03/02/24 documented as of this encounter
--- OUTSIDE RECORDS SUMMARY | 2024-05-13 00:11 | XMS_ITS | Encounter Summary ---
Author Organization [facility] Address [address] [facility] [address] [place] [address] Care Team Providers Care Hearing Screener Name Role Phone Singer Carol MD, Huber Santiago Primary Care Provider Beatriz Lee DO Primary Care Provider [phone] Encounter Details Date Type Department Care Team (Late st Contact Info) Description 05/22/2016 Orders Only [facility] ProviderSanaz MD [address] [place], [place] [id number] Social History Tobacco Use Types Packs/Day Years Used Date Smoking Tobacco: Former Alcohol Use Standard Drinks/Week Comments Yes 0 (1 standard drink = 0.6 oz pur e alcohol) Sex and Gender Information Value Date Recorded Sex Assigned at Not on file Legal Sex Male 4:45 PM CLINICAL PROFESSOR Gender Identity Male 04/16/2019 8:30 AM CLINICAL PROFESSOR Sexual Orientation Straight 04/16/2019 8: 30 AM CLINICAL PROFESSOR documented as of this encounter Plan of Treatment Not on file documented as of this encounter Procedures Procedure Name Priority Date/Time Associated Diagnosis Comments CARDIOLOGY REPORT 05/22/2016 documented in this encounter Results * CARDIOLOGY REPORT (05/22/2016) Anatomical Region Laterality Modality Other Narrative 05/22/2016 Ordered by an unspecified provider. Historical Provider [facility] WILSON Final Result documented in this encounter Visit Diagnoses Not on filedocumented in this encounter Care Teams Hearing Screener Relationship Specialty Start [place] [address] [place] [address] PCP - General 09/08/14 03/01/24 [place] [address] [place] [address] PCP - General Family Medicine 03/02/24 documented as of this encounter
--- OUTSIDE RECORDS SUMMARY | 2024-05-13 00:11 | XMS_ITS | Encounter Summary ---
Author Organization [facility] Address [address] [place] [address] Care Team Providers Care Combat Systems Engineer Name Role Phone Beatriz Mcconnell DO Primary Care Provider [phone] Encounter Details Date Type Department Care Team (Latest Contact Info) Description 09/29/2006 Outpatient Historical [facility] Yan Clemens MD [address] [facility] [address] [address] Atrial Fibrillation (CMS/HCC) (Primary Dx) Social History Tobacco Use Types Packs/Day Years Used Date Smoking Tobacco: Never Assessed Sex and Gender Information Value Date Recorded Sex Assigned at Not on file Legal Sex Male 4:26 AM HYDROGEN PLANT OPERATIONS MANAGER Gender Identity Not on file Sexual Orientation Not on file documented as of this encounter Plan of Treatment Upcoming Encounters Date Type Department Care Team (Late st Contact Info) Description 06/22/2024 8:30 AM CDT Office Visit [facility] Primary Care - [place] [address] [address] [place] [address] [address] documented as of this encounter Visit Diagnoses Diagnosis Atrial fibrillation (CMS/HCC)- Primary Atrial fibrillation documented in this encounter Care Teams Combat Systems Engineer Relationship Specialty Start [place] [address] [address] PCP - General Family Practice 07/21/23 documented as of this encounter
[2024-05-13 12:01] VITALS: BP 145/75; PULSE 70; RESP 17; TEMP 36.2; O2SAT 98
[2024-05-13 12:30] LABS: Basophils Absolute Auto 0.1 K/mm3 (0.0-0.1); Basophils Percent Auto 0.6 % (0.2-1.2); Eosinophils Absolute Auto 0.1 K/mm3 (0-0.3); Hematocrit 46.8 % (42.0-52.0); Hemoglobin 15.7 g/dL (14.0-18.0); Immature Granulocyte Absolute 0.03 K/mm3 (0.00-0.031); Immature Granulocyte Percent A 0.4 % (0-0.5); Lymphocytes Absolute Auto 1.66 K/mm3 (0.9-3.2); Lymphocytes Percent Auto 20.6 % (18.3-44.2); Mean Corpuscular HGB Conc 33.5 g/dl (32-36); Mean Corpuscular Hemoglobin 31.3 pg (26-34); Mean Corpuscular Volume 93.2 fl (80-100); Mean Platelet Volume 9.8 fl (7.4-10.4); Monocytes Absolute Auto 0.7 K/mm3 (0.1-0.6); Monocytes Percent Auto 8.6 % (2.6-8.5); Neutrophils Absolute Auto 5.5 K/mm3 (1.3-6.7); Neutrophils Percent Auto 68.8 % (45.5-73.1); Platelet Count Result 218 k/mm3 (150-375); Red Blood Count 5.02 M/mm3 (4.6-6.20); Red Cell Distribution Width 11.9 % (11.5-14.5); White Blood Count 8.1 K/mm3 (4.5-10.0)
[2024-05-13 12:38] LABS: Anion Gap 10 mmol/L (4-12); Blood Urea Nitrogen 21 mg/dL (9-20); Calcium 9.4 mg/dL (8.4-10.2); Carbon Dioxide 26 mmol/L (22-30); Chloride 101 mmol/L (98-107); Estimated CRCL calculation 48 ml/min; Estimated Glomerular Filt Rate 57; Glucose 109 mg/dL (65-110); Potassium 4.3 mmol/L (3.4-5.0); Sodium 137 mmol/L (137-145)
[2024-05-13 12:41] LABS: Prothrombin Time 13.1 Seconds (11.1-14.7)
--- NOTE | 2024-05-13 12:48 | WPDMODSED ---
Moderate Sedation Note-Pt Data Patient Data Diagnosis: Complete heart block following AFib ablation in 2006. Pacemaker dependency, permanent pacemaker at [facility] Present Complaint: No complaints Procedure to be performed/Plan: Temporary transvenous pacemaker Pacemaker generator change Allergies Allergy/AdvReac Type Severity Reaction Status Date / Time No Known Allergies Allergy Verified 05/12/24 13:29 Home Medications ?Medication ?Instructions ?Recorded ?Confirmed ?Type atorvastatin 20 mg tablet 20 mg PO QPM 05/12/24 05/12/24 History cholecalciferol (vitamin D3) 25 1,000 unit PO DAILY 05/12/24 05/12/24 History mcg (1,000 unit) capsule cyanocobalamin (vitamin B-12) 50 mcg PO DAILY 05/12/24 05/12/24 History 1,000 mcg capsule Sedation/Anesthesia: No previous sedation/anesthesia problems (including family history). [facility] Social History Social History Smoking status: Former smoker Tobacco type: cigarettes Drinks per week: 3 Substance use: never Substance use type: does not use Living arrangements: with family Additional living arrangements comments: Prema Spiritual care concerns: No Mod Sed Physical Exam Physical Exam Pre Procedural Exam: Normal: Appearance, Neck, Throat, Airway, Lungs, Heart Size, Heart Rate, Heart Rhythm, Neuro Exam and Extremities Hours since solid foods: 12 Hours since liquid intake: 12 Mallampati Classification: class II Internal Medicine - PN: Obj Da Vital Signs Vital Signs: Vital Signs - 24 hr 05/13/24 12:01 Temperature 36.2 C L Pulse Rate 70 Respiratory Rate 17 Blood Pressure 145/75 H Pulse Oximetry 98 Oxygen Delivery Room Air Labs 05/13/24 12:06 05/13/24 12:06 Labs: Laboratory Results - last 24 hr 05/13/24 12:06 WBC 8.1 RBC 5.02 Hgb 15.7 Hct 46.8 MCV 93.2 MCH 31.3 MCHC 33.5 RDW 11.9 Plt Count 218 MPV 9.8 Immature Gran % (Auto) 0.4 Neut % (Auto) 68.8 Lymph % (Auto) 20.6 [place] % (Auto) 8.6 H Eos % (Auto) 1.0 Baso % (Auto) 0.6 Lymph # (Auto) 1.66 [place] # (Auto) 0.7 H Eos # (Auto) 0.1 Baso # (Auto) 0.1 Abs Immat Gran (auto) 0.03 Absolute Neuts (auto) 5.5 Absolute Nucleated RBC 0.000 Nucleated RBC % 0.0 PT 13.1 INR 1.0 Sodium 137 Potassium 4.3 Chloride 101 Carbon Dioxide 26 Anion Gap 10 BUN 21 H Creatinine 1.22 Estim Creat Clear Calc 48 Estimated GFR 57 L Glucose 109 Calcium 9.4 ASA Classification/Sedation ASA Classification/Sedation ASA Class: III Emergent: No Risks: Risks, benefits and alternatives explained and patient/family accepted plan for sedation. Patient re-evaluated immediately prior to sedation.
--- NOTE | 2024-05-13 14:43 | WPDCARDPROC ---
Cardiac Cath Procedure Note Date of procedure:: 05/13/24 Performing physician:: Yan Clemens MD Indication:: Chronically implanted pacemaker at [facility] Brief clinical history:: This is a 79-year-old man with complete heart block which occurred in 2006 during ablation of atrial fibrillation. Since then he has been dependent on a dual-chamber pacemaker. His current device is at [facility] any is admitted today for elective generator change. Because of pacemaker dependency transvenous device will be placed prior to generator change. Procedure Procedure performed:: Placement of temporary transvenous pacemaker Explantation of depleted permanent pulse generator Implantation of new dual-chamber pulse generator Sedation/Medication given:: Fentanyl 100 mg Versed 4 mg Case start time 1:30 p.m. Case end time 2:40 p.m. Sedation provided by Delmi Woods RN , trained observer Access site:: Right femoral vein Chronically implanted left anterior chest wall pocket Estimated blood loss:: Minimal Procedure note:: Patient was brought to the cardiac catheterization lab in postabsorptive state the right femoral triangle was prepped and draped in the usual sterile fashion. Anesthesia was provided with 10 cc of lidocaine infiltrated locally. Following this the right femoral vein was punctured and a 6 Telugu vascular sheath was placed. After this a 5 Telugu temporary balloon tipped pacemaker was advanced under fluoroscopic visualization to the level of the right atrium it was then advanced across the tricuspid valve into the right ventricular apical position adjacent to the chronically implanted pacemaker lead. The device was tested and demonstrated good sensing and capture. This was then covered under the drape and secured with a Tegaderm dressing. Following this I broke scrub while the chest was prepped for the generator change. Following draping the chest and recent rubbing chronically implanted pocket was easily identified. The patient received 20 cc of lidocaine infiltrated above that area and it is incision was then made using the plasma blade over the chronically implanted device. This was also used to secure hemostasis using electrocautery. Following this the fibrous capsule the pocket was encountered and opened using the plasma blade and the Metzenbaum scissors. The chronically implanted pacemaker and attached leads were removed from pocket were visually intact and unremarkable in appearance. The leads were disconnected from the depleted generator using the torque wrench and the new generator was then connected to the leads using the same torque wrench. The pocket was irrigated with Ancef infused saline the new generator in the chronic leads were then placed back into the pocket. This was closed in layers using 3-0 Vicryl in interrupted fashion for the subcutaneous tissue 4-0 Vicryl in a running subcuticular fashion for the skin. The wound was dressed with Aquacel dressing the patient was taken to the holding area in stable condition for. Prior to leaving the laborer driver the temporary pacemaker was removed from the femoral vein in the venous sheath was removed and manual pressure was held at the puncture site. Procedure was well tolerated and uncomplicated. Findings:: The explanted device is a Medtronic dual-chamber pacemaker model A2DR01 serial number [id number]. Originally implanted September 02, 2014. Pacemaker a dual-chamber device model W1DR01 serial number [id number]. The device is programmed in the DDD mode lower rate limit 70 upper rate limit 130 av delay 150-180 milliseconds. The atrial lead is a Medtronic bipolar lead model 5076-52 serial number [id number] originally implanted November 05, 2006. P-waves are sensed at 3.3 mV threshold is 0.7 volts at 0.4 milliseconds impedance 437 Ohms. The ventricular lead is a Medtronic bipolar lead model 5076 -5 8 serial number [id number] originally implanted November 05, 2006. R-waves are sensed at 17.3 mV pacing threshold 0.75 volts at 0.4 milliseconds impedance 580 Ohms. Conclusion:: 1. Successful uncomplicated placement of temporary transvenous pacemaking wire for protection of cardiac rhythm during generator change in this pacemaker dependent patient 2. Successful uncomplicated explantation of depleted dual-chamber pulse generator 3. Successful uncomplicated implantation new permanent Medtronic dual-chamber pulse generator for ongoing treatment complete heart block 79-year-old man. Yan Clemens MD [facility]
[2024-05-13 15:00] VITALS: BP 140/107; PULSE 71; RESP 14; O2SAT 96
[2024-05-13 15:15] VITALS: BP 134/71; PULSE 71; RESP 16; O2SAT 95
[2024-05-13 15:30] VITALS: BP 120/69; PULSE 72; RESP 20; O2SAT 96
[2024-05-13 15:45] VITALS: BP 134/78; PULSE 72; RESP 16; O2SAT 97
== END 2024-05-13 16:00 | disposition home or self-care (01) ==
PROVIDERS: Visit Provider Specialist
PROC: 0JH604Z Insertion of Pacemaker, Single Chamber into Chest Subcutaneous Tissue and Fascia, Open Approach (ICD-10-PCS; CPT 33210; principal; 2024-05-13 13:00)
DX: Z45.018 Encounter for adjustment and management of other part of cardiac pacemaker (principal); I48.91 Unspecified atrial fibrillation; Z87.891 Personal history of nicotine dependence
CPT/HCPCS: 33212; 36415; 80048; 85025; 85610; C1785; J0690; J1644; J2003; J2250; J3010; J7040